=== PATIENT | female | born 1985 | race Caucasian/White ===

== ENCOUNTER 2020-03-29 15:59 | Inpatient (IN) | payer OTHER ==
--- NOTE | 2020-03-29 19:19 | BHS.RME ---
Substance Use & Tx History - Substance Use History Heroin Substance amount: 20 bags Frequency of use: Daily Substance route: Injection (ex: intravenous or skin popping) Date of Last Use: 03/28/20 - Last Treatment Date of last treatment: [facility] Treatment type: Substance Use Disorder (CHENG) Where was last treatment: Detox Physical/Psych/Mental Status - Behavior General Behavior: Increased activity (restlessness, agitation) Eye Contact: Normal Other Behaviors: Mannerisms - Cooperativeness Cooperativeness: Reluctant - Thinking Thought Processes: Logical Thought content: Future oriented - Physical Health Problems Is patient presently having any pain?: No Does patient presently have any injuries (include location): No Does patient currently have a fever: No Is patient : No COWS - Scale Resting Pulse: 1= [place] 81-100 Sweatin=Flushed/Facial Moisture Restless Observation: 1= Difficult to Sit Still Pupil Size: 0= Normal to Room Light Bone or Joint Aches: 4=Acute Joint/Muscle Pain Runny Nose/ Eye Tearin= Nasal Congestion GI Upset > 30mins: 1= Stomach Cramp Tremor Observation: 4= Gross Tremor/Twitching Yawning Observation: 1= 1-2x During Session Anxiety or Irritability: 4=Extreme Anxiety Goose Flesh Skin: 3=Piloerection COWS Score: 22 Treatment Recommendation - Level of Care Level of Care: Opioid Treatment Program (OTP) (Heroin detoxification)
--- NOTE | 2020-03-29 19:21 | HP ---
COWS - Scale Resting Pulse: 1= [place] 81-100 Sweatin=Flushed/Facial Moisture Restless Observation: 1= Difficult to Sit Still Pupil Size: 0= Normal to Room Light Bone or Joint Aches: 4=Acute Joint/Muscle Pain Runny Nose/ Eye Tearin= Nasal Congestion GI Upset > 30mins: 1= Stomach Cramp Tremor Observation: 4= Gross Tremor/Twitching Yawning Observation: 1= 1-2x During Session Anxiety or Irritability: 4=Extreme Anxiety Goose Flesh Skin: 3=Piloerection COWS Score: 22 CIWA Score - Admission Criteria [facility]ASAS Guidelines: Admission for Medically Managed Detox: Requires at least one of the followin. CIWA greater than 12 2. Seizures within the past 24 hours 3. Delirium tremens within the past 24 hours 4. Hallucinations within the past 24 hours 5. Acute intervention needed for co occurring medical disorder 6. Acute intervention needed for co occurring psychiatric disorder 7. Severe withdrawal that cannot be handled at a lower level of care (continued vomiting, continued diarrhea, abnormal vital signs) requiring intravenous medication and/or fluids 8. Admission ROS [facility] Chief Complaint: Heroin withdrawal symptoms Allergies/Adverse Reactions: Allergies Allergy/AdvReac Type Severity Reaction Status Date / Time No Known Allergies Allergy Verified 03/29/20 19:24 History of Present Illness: 35 years old female with 14 years of heroin dependence is seeking admission to detox. This is her first admission to [facility] and she reports that her last detoxification was at [facility]. She uses 20 bags daily. She denies medical history, psych. history and suicidal ideation at this time. She is unemployed, homeless and denies any pending legal issues. She reports blackouts and overdose. she had blackout a few days ago and overdosed four months ago. She is not on any prescribed medication and was referred from [facility]. Exam Limitations: Clinical Condition (active withdrawal) - Ebola screening Have you traveled outside of the country in the last 21 days: No Have you had contact with anyone from an Ebola affected area: No Have you been sick,other than usual withdrawal symptoms: No Do you have a fever: No - Review of Systems Constitutional: Chills, Loss of Appetite, Malaise, Night Sweats, Changes in sleep EENT: reports: No Symptoms Reported Respiratory: reports: No Symptoms reported Cardiac: reports: No Symptoms Reported GI: reports: Nausea, Poor Appetite, Poor Fluid Intake, Vomiting (x 1), Abdominal cramping : reports: No Symptoms Reported Musculoskeletal: reports: Back Pain, Joint Pain, Muscle Pain Integumentary: reports: Dryness, Flushing Neuro: reports: Tremors Endocrine: reports: No Symptoms Reported Hematology: reports: No Symptoms Reported Psychiatric: reports: Agitated, Anxious, Depressed Other Systems: Reviewed and Negative Patient History - Patient Medical History Hx Anemia: No Hx Asthma: No Hx Chronic Obstructive Pulmonary Disease (COPD): No Hx Cancer: No Hx Cardiac Disorders: No Hx Congestive Heart Failure: No Hx Hypertension: No Hx Hypercholesterolemia: No Hx Pacemaker: No HX Cerebrovascular Accident: No Hx Seizures: No Hx Diabetes: No Hx Gastrointestinal Disorders: No Hx Liver Disease: No Hx Genitourinary Disorders: No Hx Sexually Transmitted Disorders: No Hx Renal Disease (ESRD): No Hx Thyroid Disease: No Hx Human Immunodeficiency Virus (HIV): No (Negative 2020) Hx Hepatitis C: No Hx Depression: No Hx Suicide Attempt: No (Denies suicidal ideation at this time) Hx Bipolar Disorder: No Hx Schizophrenia: No - Patient Surgical History Past Surgical History: No - PPD History Previous Implant?: Yes Documented Results: Negative w/o proof Implanted On Prior R Admission?: No PPD to be Administered?: Yes - Reproductive History Patient is a Female of Child Bearing Age (11 -55 yrs old): No Last Menstrual Period: 02/28/20 - Smoking Cessation Smoking history: Former smoker Have you smoked in the past 12 months: No Hx Chewing Tobacco Use: No Initiated information on smoking cessation: No - Substance & Tx. History Hx Alcohol Use: No Hx Substance Use: Yes Substance Use Type: Cocaine, Heroin Hx Substance Use Treatment: Yes ([facility]) - Substances abused Heroin Substance route: Injection Frequency: Daily Amount used: 20 bags Age of first use: 21 Date of last use: 03/28/20 Admission Physical Exam BHS - Physical General Appearance: Yes: Severe Distress, Tremorous, Irritable, Anxious HEENTM: Yes: Within Normal Limits Respiratory: Yes: Lungs Clear, Normal Breath Sounds, No Respiratory Distress Neck: Yes: Within Normal Limits Breast: Yes: Breast Exam Deferred Cardiology: Yes: Regular Rhythm, Regular Rate Abdominal: Yes: Normal Bowel Sounds Genitourinary: Yes: Within Normal Limits Back: Yes: Normal Inspection Musculoskeletal: Yes: Muscle Pain Extremities: Yes: Tremors Neurological: Yes: Within Normal Limits Integumentary: Yes: Warm Lymphatic: Yes: Within Normal Limits - Diagnostic (1) Opioid dependence with withdrawal Current Visit: Yes Status: Acute (2) Cocaine dependence Current Visit: Yes Status: Chronic Qualifiers: Substance use status: uncomplicated Qualified Code(s): F14.20 - Cocaine dependence, uncomplicated Cleared for Admission [facility] - Detox or Rehab [facility] Level of Care: Medically Managed Detox Regimen/Protocol: Methadone Claeared for Rehab Admission: No Inpatient Rehab Admission - Rehab Decision to Admit Inpatient rehab admission?: No
[2020-03-29] MEDS ORDERED: MAGNESIUM HYDROX 2400MG/30ML ORAL SUSPENSION 30 ML CUP PO PRN (19:38)
[2020-03-29] MEDS ORDERED: MAGNESIUM CITRATE 300 ML BOTTLE PO PRN (19:38)
[2020-03-29] MEDS ORDERED: MENTHOL/PHENOL 1 EACH UD MM PRN (19:38)
[2020-03-29] MEDS ORDERED: BISMUTH SUBSALICYLATE 524 MG/30 ML UD PO PRN (19:38)
[2020-03-29] MEDS ORDERED: IBUPROFEN 400 MG TABLET (FP) PO PRN (19:38)
[2020-03-29] MEDS ORDERED: ONDANSETRON *ODT* 4 MG TABLET SL PRN (19:38)
[2020-03-29] MEDS ORDERED: MAG HYDROX/AL HYDROX/SIMETH 30 ML UNIT-DOSE CUP PO PRN (19:38)
[2020-03-29] MEDS ORDERED: cloNIDine HCL 0.1 MG TABLET PO PRN (19:38)
[2020-03-29] MEDS ORDERED: ACETAMINOPHEN 325 MG TABLET (FP) PO PRN (19:38)
[2020-03-29 19:46] VITALS: BMI 23.4
[2020-03-29] MEDS ORDERED: METHADONE HCL 10 MG TABLET (FOR DETOX USE ONLY) PO ONE (20:00)
[2020-03-29] MEDS: MELATONIN 5 MG TABLETS PO SCH (22:58)
[2020-03-29] MEDS: THIAMINE HCL 100 MG TABLET (FP) PO SCH (22:59)
--- NOTE | 2020-03-30 08:48 | EKG ---
Test Reason : Blood Pressure : / mmHG Vent. Rate : 064 BPM Atrial Rate : 064 BPM P-R Int : 128 ms QRS Dur : 080 ms QT Int : 406 ms P-R-T Axes : 074 081 059 degrees QTc Int : 418 ms NORMAL SINUS RHYTHM WITH SINUS ARRHYTHMIA NORMAL ECG NO PREVIOUS ECGS AVAILABLE Confirmed by Sriram Weeks MD ([id number]) on 03/30/2020 8:47:03 AM Referred By: Confirmed By:Sriram Weeks MD
[2020-03-30] MEDS ORDERED: METHADONE HCL 5 MG TABLET (FOR DETOX USE ONLY) ONE (08:53)
[2020-03-30] MEDS ORDERED: METHADONE HCL 10 MG TABLET (FOR DETOX USE ONLY) ONE (08:53)
[2020-03-30] MEDS ORDERED: METHADONE (DETOX) 20 MG, METHADONE (DETOX) 5 MG PO ONE (10:00)
[2020-03-30 10:50] LABS: HEMATOCRIT 40.3 % (32.4-45.2); HEMOGLOBIN 13.2 GM/dL (10.7-15.3); MCH 28.5 pg (25.7-33.7); MCHC 32.7 g/dl (32.0-36.0); MEAN PLT VOLUME 12.1 fl (7.5-11.1); PLATELET COUNT 209 K/MM3 (134-434); RBC 4.63 M/mm3 (3.60-5.2); RDW 15.4 % (11.6-15.6)
[2020-03-30 11:27] LABS: ALBUMIN 3.2 g/dl (3.4-5.0); BILIRUBIN,TOTAL 0.4 mg/dL (0.2-1); BLOOD UREA NITROGEN 9.3 mg/dL (7-18); CREATININE 0.7 mg/dL (0.55-1.3); TOT PROT 7.2 g/dl (6.4-8.2)
[2020-03-30] MEDS: PRENATAL VITAMINS W/ FOLIC ACID TABLET (FP) PO SCH (12:48)
--- NOTE | 2020-03-30 13:26 | PN ---
BHS COWS - Scale Resting Pulse: 1= CA 81-100 Sweatin=Flushed/Facial Moisture Restless Observation: 1= Difficult to Sit Still Pupil Size: 0= Normal to Room Light Bone or Joint Aches: 2= Severe Diffuse Aches Runny Nose/ Eye Tearin= Runny Nose/Eyes GI Upset > 30mins: 0= None Tremor Observation of Outstretched Hands: 1= Tremor [place], Not Seen Yawning Observation: 2= >3x During Session Anxiety or Irritability: 2=Irritable/Anxious Goose Flesh Skin: 3=Piloerection COWS Score: 16 BHS Progress Note (SOAP) Subjective: restless sweats shakes interrupted sleep agitation irritable body aches Objective: 03/30/20 13:25 Vital Signs Temperature 98.4 F 03/30/20 08:56 Pulse Rate 87 03/30/20 08:56 Respiratory Rate 18 03/30/20 08:56 Blood Pressure 102/62 03/30/20 08:56 O2 Sat by Pulse Oximetry (%) 99 03/30/20 08:56 Laboratory Tests 03/29/20 03/30/20 03/30/20 07:00 07:00 07:00 WBC 5.0 RBC 4.63 Hgb 13.2 Hct 40.3 MCV 87.0 MCH 28.5 MCHC 32.7 RDW 15.4 Plt Count 209 MPV 12.1 H Sodium 142 Potassium 4.0 Chloride 110 H Carbon Dioxide 27 Anion Gap 6 L BUN 9.3 Creatinine 0.7 Est GFR (CKD-EPI)AfAm 131.02 Est GFR (CKD-EPI)NonAf 113.04 Random Glucose 94 Calcium 9.0 Total Bilirubin 0.4 AST 13 L ALT 14 Alkaline Phosphatase 79 Total Protein 7.2 Albumin 3.2 L Syphilis Serology Non-reactive labs noted aaox3 ambulating no acute distress Assessment: 03/30/20 13:26 withdrawals Plan: continue detox increase fluids valium 10mg prn x 3 days only
[2020-03-30] MEDS: diazePAM 5 MG TABLET PO PRN ×2 (17:32→22:36)
[2020-03-30] MEDS: METHOCARBAMOL 500 MG TABLET PO PRN ×2 (17:33→22:36)
[2020-03-30] MEDS: THIAMINE HCL 100 MG TABLET (FP) PO SCH (22:37)
[2020-03-30] MEDS: MELATONIN 5 MG TABLETS PO SCH (22:38)
[2020-03-31] MEDS ORDERED: METHADONE HCL 10 MG TABLET (FOR DETOX USE ONLY) PO ONE (10:00)
[2020-03-31] MEDS: PRENATAL VITAMINS W/ FOLIC ACID TABLET (FP) PO SCH (10:28)
[2020-03-31] MEDS: METHOCARBAMOL 500 MG TABLET PO PRN (12:05)
[2020-03-31] MEDS: diazePAM 5 MG TABLET PO PRN (12:09)
--- NOTE | 2020-03-31 13:47 | PN ---
BHS COWS - Scale Resting Pulse: 1= [place] 81-100 Sweatin= Chills/Flushing Restless Observation: 1= Difficult to Sit Still Pupil Size: 0= Normal to Room Light Bone or Joint Aches: 2= Severe Diffuse Aches Runny Nose/ Eye Tearin= Nasal Congestion GI Upset > 30mins: 0= None Tremor Observation of Outstretched Hands: 1= Tremor [place], Not Seen Yawning Observation: 0= None Anxiety or Irritability: 1=Feels Anxious/Irritable Goose Flesh Skin: 0=Smooth Skin COWS Score: 8 BHS Progress Note (SOAP) Subjective: sweats shakes interrupted sleep agitation chills Objective: 03/31/20 13:56 Vital Signs Temperature 96.8 F L 03/31/20 08:51 Pulse Rate 89 03/31/20 08:51 Respiratory Rate 18 03/31/20 08:51 Blood Pressure 109/63 03/31/20 08:51 O2 Sat by Pulse Oximetry (%) 99 03/31/20 08:51 Laboratory Tests 03/29/20 03/29/20 03/30/20 07:00 20:00 07:00 WBC 5.0 RBC 4.63 Hgb 13.2 Hct 40.3 MCV 87.0 MCH 28.5 MCHC 32.7 RDW 15.4 Plt Count 209 MPV 12.1 H Sodium Potassium Chloride Carbon Dioxide Anion Gap BUN Creatinine Est GFR (CKD-EPI)AfAm Est GFR (CKD-EPI)NonAf Random Glucose Calcium Total Bilirubin AST ALT Alkaline Phosphatase Total Protein Albumin Syphilis Serology Non-reactive COVID-19 (MARICEL) Not detected 03/30/20 07:00 WBC RBC Hgb Hct MCV MCH MCHC RDW Plt Count MPV Sodium 142 Potassium 4.0 Chloride 110 H Carbon Dioxide 27 Anion Gap 6 L BUN 9.3 Creatinine 0.7 Est GFR (CKD-EPI)AfAm 131.02 Est GFR (CKD-EPI)NonAf 113.04 Random Glucose 94 Calcium 9.0 Total Bilirubin 0.4 AST 13 L ALT 14 Alkaline Phosphatase 79 Total Protein 7.2 Albumin 3.2 L Syphilis Serology COVID-19 (MARICEL) labs noted aaox3 ambulating no acute distress Assessment: 03/31/20 13:57 withdrawals Plan: continue detox
[2020-03-31] MEDS: ACETAMINOPHEN 325 MG TABLET (FP) PO PRN (14:21)
[2020-03-31] MEDS ORDERED: ALBUTEROL SO4 2.5/IPRATROPIUM 0.5 INH SOL 3 ML VIAL.NEB. NEB PRN (15:24)
--- NOTE | 2020-03-31 15:25 | PN ---
BHS Progress Note Note: pt states she has a h/o of bronchial spasm; sprivia ordered. pt states this helps her in the past.
[2020-03-31] MEDS: TIOTROPIUM BROMIDE 2.5 MCG (SPIRIVA) RESPIMAT INHALER IH SCH (16:43)
[2020-03-31] MEDS: MELATONIN 5 MG TABLETS PO SCH (23:24)
[2020-03-31] MEDS: THIAMINE HCL 100 MG TABLET (FP) PO SCH (23:25)
[2020-04-01] MEDS ORDERED: METHADONE HCL 10 MG TABLET (FOR DETOX USE ONLY) ONE (09:12)
[2020-04-01] MEDS ORDERED: METHADONE HCL 5 MG TABLET (FOR DETOX USE ONLY) ONE (09:12)
[2020-04-01] MEDS: PRENATAL VITAMINS W/ FOLIC ACID TABLET (FP) PO SCH (10:00)
[2020-04-01] MEDS ORDERED: METHADONE (DETOX) 10 MG, METHADONE (DETOX) 5 MG PO ONE (10:00)
[2020-04-01] MEDS: TIOTROPIUM BROMIDE 2.5 MCG (SPIRIVA) RESPIMAT INHALER IH SCH (10:26)
[2020-04-01] MEDS: diazePAM 5 MG TABLET PO PRN ×3 (10:50→21:49)
[2020-04-01] MEDS ORDERED: LIDOCAINE 5% TOPICAL PATCH TP ONE (14:08)
--- NOTE | 2020-04-01 14:10 | PN ---
BHS COWS - Scale Resting Pulse: 0= [place] 80 or Below Sweatin= Chills/Flushing Restless Observation: 1= Difficult to Sit Still Pupil Size: 0= Normal to Room Light Bone or Joint Aches: 2= Severe Diffuse Aches Runny Nose/ Eye Tearin= None GI Upset > 30mins: 0= None Tremor Observation of Outstretched Hands: 0= None Yawning Observation: 0= None Anxiety or Irritability: 1=Feels Anxious/Irritable Goose Flesh Skin: 0=Smooth Skin COWS Score: 5 BHS Progress Note (SOAP) Subjective: low back pain sweats restless Objective: 04/01/20 14:09 Vital Signs Temperature 97.1 F L 04/01/20 08:40 Pulse Rate 72 04/01/20 08:40 Respiratory Rate 18 04/01/20 08:40 Blood Pressure 140/88 04/01/20 08:40 O2 Sat by Pulse Oximetry (%) 99 04/01/20 08:40 Laboratory Tests 03/29/20 03/29/20 03/30/20 07:00 20:00 07:00 WBC 5.0 RBC 4.63 Hgb 13.2 Hct 40.3 MCV 87.0 MCH 28.5 MCHC 32.7 RDW 15.4 Plt Count 209 MPV 12.1 H Sodium Potassium Chloride Carbon Dioxide Anion Gap BUN Creatinine Est GFR (CKD-EPI)AfAm Est GFR (CKD-EPI)NonAf Random Glucose Calcium Total Bilirubin AST ALT Alkaline Phosphatase Total Protein Albumin Syphilis Serology Non-reactive COVID-19 (MARICEL) Not detected 03/30/20 07:00 WBC RBC Hgb Hct MCV MCH MCHC RDW Plt Count MPV Sodium 142 Potassium 4.0 Chloride 110 H Carbon Dioxide 27 Anion Gap 6 L BUN 9.3 Creatinine 0.7 Est GFR (CKD-EPI)AfAm 131.02 Est GFR (CKD-EPI)NonAf 113.04 Random Glucose 94 Calcium 9.0 Total Bilirubin 0.4 AST 13 L ALT 14 Alkaline Phosphatase 79 Total Protein 7.2 Albumin 3.2 L Syphilis Serology COVID-19 (MARICEL) labs noted aaox3 ambulating no acute distress Assessment: 04/01/20 14:10 withdrawals Plan: continue detox lidocaine patch
[2020-04-01] MEDS: METHOCARBAMOL 500 MG TABLET PO PRN ×2 (15:53→21:51)
[2020-04-01] MEDS: ACETAMINOPHEN 325 MG TABLET (FP) PO PRN (18:52)
[2020-04-01] MEDS: MELATONIN 5 MG TABLETS PO SCH (21:49)
[2020-04-01] MEDS: THIAMINE HCL 100 MG TABLET (FP) PO SCH (21:49)
[2020-04-01] MEDS ORDERED: LIDOCAINE PATCH REMOVAL MC SCH (22:00)
[2020-04-02] MEDS: diazePAM 5 MG TABLET PO PRN ×2 (07:26→10:49)
[2020-04-02] MEDS ORDERED: LIDOCAINE 5% TOPICAL PATCH TP SCH (10:00)
[2020-04-02] MEDS ORDERED: METHADONE HCL 10 MG TABLET (FOR DETOX USE ONLY) PO ONE (10:00)
[2020-04-02] MEDS: PRENATAL VITAMINS W/ FOLIC ACID TABLET (FP) PO SCH (10:49)
[2020-04-02] MEDS: METHOCARBAMOL 500 MG TABLET PO PRN (10:49)
[2020-04-02] MEDS: TIOTROPIUM BROMIDE 2.5 MCG (SPIRIVA) RESPIMAT INHALER IH SCH (10:50)
[2020-04-02 11:02] VITALS: BP 90/57; PULSE 104; TEMP 97.1
--- NOTE | 2020-04-02 12:40 | DS ---
[facility] Detox Discharge Summary Admission Date: 03/29/20 Discharge Date: 04/02/20 - History Present History: Opioid Dependence Additional Comments: Patient seen and examined, alert and oriented x3, in acute respiratory distress. Full ROM, ambulatory in the unit without assistance. Skin warm to touch without lesions. For D/C in AM but wants to be discharged today, stable for discharge today. Encouraged to followup aftercare. Pertinent Past History: History of heroin and cocaine use disorder - Physical Exam Results Vital Signs: Vital Signs Temperature 97.1 F L 04/02/20 08:53 Pulse Rate 104 H 04/02/20 08:53 Respiratory Rate 18 04/02/20 08:53 Blood Pressure 90/57 L 04/02/20 08:53 O2 Sat by Pulse Oximetry (%) 98 04/02/20 05:38 Vital Signs 04/02/20 08:53 Temperature 97.1 F L Pulse Rate 104 H Respiratory 18 Rate Blood Pressure 90/57 L Laboratory Last Values WBC 5.0 K/mm3 (4.0-10.0) 03/30/20 07:00 RBC 4.63 M/mm3 (3.60-5.2) 03/30/20 07:00 Hgb 13.2 GM/dL (10.7-15.3) 03/30/20 07:00 Hct 40.3 % (32.4-45.2) 03/30/20 07:00 MCV 87.0 fl (80-96) 03/30/20 07:00 MCH 28.5 pg (25.7-33.7) 03/30/20 07:00 MCHC 32.7 g/dl (32.0-36.0) 03/30/20 07:00 RDW 15.4 % (11.6-15.6) 03/30/20 07:00 Plt Count 209 K/MM3 (134-434) 03/30/20 07:00 MPV 12.1 fl (7.5-11.1) H 03/30/20 07:00 Sodium 142 mmol/L (136-145) 03/30/20 07:00 Potassium 4.0 mmol/L (3.5-5.1) 03/30/20 07:00 Chloride 110 mmol/L (98-107) H 03/30/20 07:00 Carbon Dioxide 27 mmol/L (21-32) 03/30/20 07:00 Anion Gap 6 MMOL/L (8-16) L 03/30/20 07:00 BUN 9.3 mg/dL (7-18) 03/30/20 07:00 Creatinine 0.7 mg/dL (0.55-1.3) 03/30/20 07:00 Est GFR (CKD-EPI)AfAm 131.02 03/30/20 07:00 Est GFR (CKD-EPI)NonAf 113.04 03/30/20 07:00 Random Glucose 94 mg/dL (74-106) 03/30/20 07:00 Calcium 9.0 mg/dL (8.5-10.1) 03/30/20 07:00 Total Bilirubin 0.4 mg/dL (0.2-1) 03/30/20 07:00 AST 13 U/L (15-37) L 03/30/20 07:00 ALT 14 U/L (13-61) 03/30/20 07:00 Alkaline Phosphatase 79 U/L (45-117) 03/30/20 07:00 Total Protein 7.2 g/dl (6.4-8.2) 03/30/20 07:00 Albumin 3.2 g/dl (3.4-5.0) L 03/30/20 07:00 Syphilis Serology Non-reactive (NONREACTIVE) 03/29/20 07:00 COVID-19 (MARICEL) Not detected (Not Detected) 03/29/20 20:00 Labs noted. Pertinent Admission Physical Exam Findings: Withdrawal symptoms. - Treatment Hospital Course: Detox Protocol Followed, Detoxed Safely, Responded well, Discharged Condition Good - Medication Discharge Medications: Ambulatory Orders NK [No Known Home Medication] 03/29/20 - Diagnosis (1) Opioid dependence with withdrawal Status: Acute (2) Cocaine dependence Status: Chronic Qualifiers: Substance use status: uncomplicated Qualified Code(s): F14.20 - Cocaine dependence, uncomplicated - AMA Did Patient Leave Against Medical Advice: No COWS (PN) - Opiate Withdrawal Resting Pulse: 1= [place] 81-100 Sweatin= No chills or Flushing Restless Observation: 1= Difficult to Sit Still Pupil Size: 0= Normal to Room Light Bone or Joint Aches: 0= None Runny Nose/ Eye Tearin= None GI Upset > 30mins: 0= None Tremor Observation of Outstretched Hands: 0= None Yawning Observation: 0= None Anxiety or Irritability: 1=Feels Anxious/Irritable Goose Flesh Skin: 0=Smooth Skin COWS Score: 3
[2020-04-03] MEDS ORDERED: METHADONE HCL 5 MG TABLET (FOR DETOX USE ONLY) PO ONE (06:00)
== END 2020-04-02 13:10 | disposition home or self-care (01) | DRG 773 ==
LOC: YASAS 15:59 → Y6N 19:47
PROVIDERS: ADMIT Allergy & Immunology; ATTEND Allergy & Immunology
PROC: HZ2ZZZZ Detoxification Services for Substance Abuse Treatment (ICD-10-PCS; principal; 2020-03-29)
DX: F11.23 Opioid dependence with withdrawal (principal); F14.20 Cocaine dependence, uncomplicated; F17.211 Nicotine dependence, cigarettes, in remission; Z56.0 Unemployment, unspecified; Z59.0 Homelessness; Z87.09 Personal history of other diseases of the respiratory system
CPT/HCPCS: 36415; 80053; 85027; 86780; 93005; 93010; C9803; U0003